=== PATIENT | female | born 1955 | race Caucasian/White ===

== ENCOUNTER → 2017-11-19 | Outpatient (CLI) | payer BC, OTHER ==
[~2017-11-19] MED LIST: ACET-1138 PO; ASPEC325 PO; ATEN-173 PO; BACL10TA PO; CITA40TA4 PO; CYAN500T13 PO; DEXL60CA4 PO; EFF75 PO; GABA-112 PO; GLIM2TAB2 PO; INSUINJ12 SC; MAGN400T6 PO; NRN100 PO; NYSTCRE11 TOP; RQP/5 PO; RXC5 PO; SITA100T3 PO; VENL150C56 PO
== END | disposition home or self-care (01) ==
LOC: C.LABMFLN 12:15
PROVIDERS: ATTEND Family Medicine
DX: R10.9 Unspecified abdominal pain (principal)

== ENCOUNTER → 2017-11-20 | Outpatient (CLI) | payer BC ==
[2017-11-20 17:58] LABS: BASO % 0.3 %; BASO ABS # 0.01 K/uL (0-0.2); EOS ABS # 0.06 K/uL (0-0.5); HEMATOCRIT 41.3 % (37-47); HEMOGLOBIN 14.3 g/dL (12.0-16.0); LYMPH ABS # 1.01 K/uL (1.2-3.4); MEAN CELL VOLUME 90.2 fL (80-100); MEAN CORPUSCULAR HEMOGLOBIN 31.2 pg (25-34); MEAN CORPUSCULAR HGB CONC 34.6 g/dl (32-36); MEAN PLATELET VOLUME 9.7 fL (7.4-10.4); MONO % 10.1 %; MONO ABS # 0.31 K/uL (0.11-0.59); NEUT % 54.6 %; NEUT ABS # 1.67 K/uL (1.4-6.5); PLATELET COUNT 102 K/uL (130-400); RED CELL DISTRIBUTION WIDTH CV 14.5 % (11.5-14.5); RED CELL DISTRIBUTION WIDTH SD 47.3 fL (36.4-46.3); WHITE BLOOD COUNT 3.06 K/uL (4.8-10.8)
[2017-11-20 18:27] LABS: ALBUMIN 3.1 gm/dl (3.4-5.0); ALT/SGPT 55 U/L (12-78); AST/SGOT 45 U/L (15-37); BLOOD UREA NITROGEN 9 mg/dl (7-18); CARBON DIOXIDE 23 mmol/L (21-32); CREATININE 0.75 mg/dl (0.60-1.20); GLUCOSE 259 mg/dl (70-99); POTASSIUM 3.7 mmol/L (3.5-5.1); SODIUM 139 mmol/L (136-145); TOTAL PROTEIN 7.6 gm/dl (6.4-8.2)
[2017-11-20 18:30] LABS: ALKALINE PHOSPHATASE 241 U/L (45-117); CHOLESTEROL 212 mg/dl (0-200); LDL CHOLESTEROL CALCULATED 135 mg/dl
[2017-11-21 05:44] LABS: HEMOGLOBIN A1C 10.9 % (4.5-5.6)
== END | disposition home or self-care (01) ==
LOC: C.LABMFLN 12:40
PROVIDERS: ATTEND Family Medicine
DX: E11.9 Type 2 diabetes mellitus without complications (principal); D72.819 Decreased white blood cell count, unspecified; E78.5 Hyperlipidemia, unspecified

== ENCOUNTER → 2018-01-16 | Outpatient (CLI) | payer BC ==
[2018-01-16 13:27] LABS: HEMOGLOBIN A1C 10.1 % (4.5-5.6)
[2018-01-16 13:50] LABS: BLOOD UREA NITROGEN 10 mg/dl (7-18); CALCIUM 8.9 mg/dl (8.5-10.1); CARBON DIOXIDE 28 mmol/L (21-32); CREATININE 0.59 mg/dl (0.60-1.20); GLUCOSE 220 mg/dl (70-99); POTASSIUM 3.7 mmol/L (3.5-5.1); SODIUM 137 mmol/L (136-145)
== END | disposition home or self-care (01) ==
LOC: C.LABMFLN 10:28
PROVIDERS: ATTEND Family Medicine
DX: E11.9 Type 2 diabetes mellitus without complications (principal); M79.1 Myalgia

== ENCOUNTER → 2018-02-11 | Outpatient (CLI) | payer BC ==
[2018-02-12 06:04] LABS: HEMOGLOBIN A1C 10.7 % (4.5-5.6)
== END | disposition home or self-care (01) ==
LOC: C.LABMFLN 11:45
PROVIDERS: ATTEND Family Medicine
DX: E11.9 Type 2 diabetes mellitus without complications (principal)